=== PATIENT | male | born 1950 | race Caucasian/White ===

== ENCOUNTER 2017-10-09 09:31 | Inpatient (IN) | payer OTHER, BC ==
[~2017-10-09] VITALS: Ht 182.9 cm; Wt 56.0 kg
[2017-10-09 10:09] LABS: BASOPHIL (%) 0.2 % (0-1); EOSINOPHIL (%) 0.1 % (0-5); HEMATOCRIT 43.8 % (38.0-50.0); HEMOGLOBIN 14.6 G/DL (12.5-16.6); IMMATURE GRANULOCYTE (%) 0.6 % (0.0-0.7); LYMPHOCYTE (%) 2.3 % (15-42); LYMPHOCYTE COUNT 0.4 K/uL (1.0-2.8); MCH 30.5 PG (29.0-34.0); MCHC 33.3 G/DL (30.0-36.0); MCV 91.6 FL (86-99); MONOCYTE (%) 4.9 % (3-12); MONOCYTE COUNT 0.8 K/uL (0-0.8); NEUTROPHIL (%) 91.9 % (45-76); NEUTROPHIL COUNT 15.4 K/uL (1.8-6.4); PLATELET COUNT 192 K/uL (156-360); RBC DIS.WIDTH-CV 13.6 % (11.8-14.6); RBC DIS.WIDTH-SD 45.9 % (39-53); RED BLOOD COUNT 4.78 M/uL (4.00-5.50); WHITE BLOOD COUNT 16.8 K/uL (4.1-10.2)
[2017-10-09 10:20] LABS: ALBUMIN 3.8 g/dL (3.2-4.8)
[2017-10-09 10:21] LABS: CHLORIDE 94 mEq/L (99-109); POTASSIUM 4.2 mEq/L (3.7-5.4); SODIUM 136 mEq/L (136-147)
[2017-10-09 10:23] LABS: GLUCOSE 132 mg/dL (70-99); TOTAL PROTEIN 6.8 g/dL (6.4-8.3)
[2017-10-09 10:25] LABS: TOTAL BILIRUBIN 1.4 mg/dL (0.0-1.0)
[2017-10-09 10:26] LABS: ALKALINE PHOSPHATASE 65 IU/L (3-129); CREATININE 0.8 mg/dL (0.6-1.3); GFR ESTIMATE (CALCULATED) > 59 mL/min/ (58.99-99999)
[2017-10-09 10:28] LABS: AST (GOT) 29 IU/L (2-34); UREA NITROGEN (BUN) 15 mg/dL (9-23)
[2017-10-09 10:29] LABS: ALT (GPT) 34 IU/L (3-49)
[2017-10-09 10:31] LABS: TROP-I INTERPRETATION NEGATIVE; TROPONIN-I < 0.01 ng/mL (0.0-0.30)
[2017-10-09 12:15] VITALS: BP 139/78
[2017-10-09] MEDS ORDERED: BACLOFEN10 MG PO (13:24)
[2017-10-09] MEDS ORDERED: RILUTEK50 MG PO (13:24)
[2017-10-09] MEDS ORDERED: LIPITOR40 MG PO (13:25)
[2017-10-09] MEDS ORDERED: ALLOPURINOL300 MG PO (13:25)
[2017-10-09] MEDS ORDERED: LOPRESSOR100 M1 PO (13:25)
[2017-10-09] MEDS ORDERED: LOW DOSE ASPIRI81 M1 PO (13:26)
[2017-10-09] MEDS ORDERED: LISINOPRIL-HCT1 EACH PO (13:26)
[2017-10-09 15:15] VITALS: BP 117/65
[2017-10-09 22:53] VITALS: BP 95/57
[2017-10-10 06:12] LABS: BASOPHIL (%) 0.1 % (0-1); EOSINOPHIL (%) 0 % (0-5); HEMATOCRIT 35.8 % (38.0-50.0); IMMATURE GRANULOCYTE (%) 0.7 % (0.0-0.7); LYMPHOCYTE (%) 5.1 % (15-42); LYMPHOCYTE COUNT 0.5 K/uL (1.0-2.8); MCH 30.4 PG (29.0-34.0); MCV 92.3 FL (86-99); MONOCYTE (%) 5.5 % (3-12); MONOCYTE COUNT 0.6 K/uL (0-0.8); NEUTROPHIL (%) 88.6 % (45-76); NEUTROPHIL COUNT 9.4 K/uL (1.8-6.4); PLATELET COUNT 143 K/uL (156-360); RBC DIS.WIDTH-SD 47.1 % (39-53); RED BLOOD COUNT 3.88 M/uL (4.00-5.50); WHITE BLOOD COUNT 10.6 K/uL (4.1-10.2)
[2017-10-10 06:13] LABS: HEMOGLOBIN 11.8 G/DL (12.5-16.6)
[2017-10-10 06:22] LABS: CHLORIDE 98 MEQ/L (99-109); CREATININE 0.5 MG/DL (0.6-1.3); GFR ESTIMATE (CALCULATED) > 59 mL/min/ (58.99-99999); GLUCOSE 106 mg/dL (70-99); POTASSIUM 3.8 MEQ/L (3.7-5.4); SODIUM 136 MEQ/L (136-147); UREA NITROGEN (BUN) 10 mg/dL (9-23)
[2017-10-10 07:00] VITALS: BP 94/58
[2017-10-10 15:30] VITALS: BP 88/57
[2017-10-10 18:06] VITALS: BP 98/59
[2017-10-10 22:46] VITALS: BP 98/53
[2017-10-11 03:26] VITALS: BP 101/58
[2017-10-11 06:28] LABS: CHLORIDE 100 MEQ/L (99-109); CREATININE 0.5 MG/DL (0.6-1.3); GFR ESTIMATE (CALCULATED) > 59 mL/min/ (58.99-99999); GLUCOSE 93 mg/dL (70-99); POTASSIUM 3.7 MEQ/L (3.7-5.4); SODIUM 138 MEQ/L (136-147); UREA NITROGEN (BUN) 8 mg/dL (9-23)
[2017-10-11 07:37] VITALS: BP 121/70
[2017-10-11 15:53] VITALS: BP 124/76
[2017-10-11 20:46] VITALS: BP 126/79
[2017-10-11 23:13] VITALS: BP 121/72
[2017-10-12 06:45] VITALS: BP 121/78
[2017-10-12 15:00] VITALS: BP 134/82
[2017-10-12 23:32] VITALS: BP 132/86
[2017-10-13 08:00] VITALS: BP 142/86
[2017-10-13 11:46] VITALS: BP 144/80
[2017-10-13 15:24] VITALS: BP 143/82
[2017-10-13 21:43] VITALS: BP 148/74
[2017-10-13 23:46] VITALS: BP 147/76
[2017-10-14 07:55] VITALS: BP 137/84
[2017-10-14 08:52] LABS: HEMATOCRIT 36.6 % (38.0-50.0); MCH 30.2 PG (29.0-34.0); MCHC 32.8 G/DL (30.0-36.0); MCV 92.2 FL (86-99); PLATELET COUNT 155 K/uL (156-360); RBC DIS.WIDTH-CV 13.5 % (11.8-14.6); RBC DIS.WIDTH-SD 46.1 % (39-53); RED BLOOD COUNT 3.97 M/uL (4.00-5.50); WHITE BLOOD COUNT 4.7 K/uL (4.1-10.2)
[2017-10-14 09:06] LABS: CHLORIDE 97 MEQ/L (99-109); POTASSIUM 3.3 MEQ/L (3.7-5.4); SODIUM 141 MEQ/L (136-147)
[2017-10-14 09:15] LABS: CREATININE 0.4 MG/DL (0.6-1.3); GFR ESTIMATE (CALCULATED) > 59 mL/min/ (58.99-99999); GLUCOSE 106 mg/dL (70-99); UREA NITROGEN (BUN) 4 mg/dL (9-23)
[2017-10-14 15:54] VITALS: BP 152/89
[2017-10-15 00:05] VITALS: BP 114/86
[2017-10-15 07:41] VITALS: BP 143/88
[2017-10-15 08:47] LABS: CHLORIDE 96 MEQ/L (99-109); CREATININE 0.4 MG/DL (0.6-1.3); GFR ESTIMATE (CALCULATED) > 59 mL/min/ (58.99-99999); GLUCOSE 114 mg/dL (70-99); POTASSIUM 3.3 MEQ/L (3.7-5.4); SODIUM 141 MEQ/L (136-147); UREA NITROGEN (BUN) 3 mg/dL (9-23)
[2017-10-15 15:20] VITALS: BP 132/85
[2017-10-15 22:30] VITALS: BP 133/83
[2017-10-15 23:47] VITALS: BP 136/74
[2017-10-16 07:42] VITALS: BP 136/87
[2017-10-16 16:06] VITALS: BP 130/90
[2017-10-16 19:01] VITALS: BP 139/89
[2017-10-16 23:29] VITALS: BP 116/77
[2017-10-17 03:58] VITALS: BP 121/88
[2017-10-17 07:44] VITALS: BP 128/88
[2017-10-17 11:26] VITALS: BP 131/84
== END 2017-10-17 16:56 | DRG 871 ==
LOC: EME 09:31 → EDOF 13:19 → 5EAST 13:19 → ENRESERVTM 13:31 → ENRESERV 13:31 → 5EAST 14:57
PROVIDERS: Emergency Medicine; Hospitalist; Nurse Practitioner Family; Physician Assistant
PROC: 0DH63UZ Insertion of Feeding Device into Stomach, Percutaneous Approach (ICD-10-PCS; principal; 2017-10-14)
PROC: 3E0G76Z Introduction of Nutritional Substance into Upper GI, Via Natural or Artificial Opening (ICD-10-PCS; 2017-10-15)
DX: A41.9 Sepsis, unspecified organism (principal); J69.0 Pneumonitis due to inhalation of food and vomit; E43 Unspecified severe protein-calorie malnutrition; G12.21 Amyotrophic lateral sclerosis; E78.5 Hyperlipidemia, unspecified; I10 Essential (primary) hypertension; Z95.5 Presence of coronary angioplasty implant and graft; Z68.1 Body mass index [BMI] 19.9 or less, adult; F17.210 Nicotine dependence, cigarettes, uncomplicated; R09.02 Hypoxemia; R47.01 Aphasia; R13.19 Other dysphagia; R47.1 Dysarthria and anarthria; I25.10 Atherosclerotic heart disease of native coronary artery without angina pectoris; M10.9 Gout, unspecified; M62.549 Muscle wasting and atrophy, not elsewhere classified, unspecified hand
CPT/HCPCS: 71045; 71275; 74230; 80048; 80053; 82948; 83605; 84484; 85025; 85027; 85379; 87040; 87493; 92526 GN; 92610 GN; 92611 GN; 93005; 94640; 94667; 94668; 94669; 94760; 94799; 99281; 99285; J0456; J0696; J1644; J1885; J1956; J2060; J3480; J7030; J7042; S0030